=== PATIENT | female | born 1945 | race Caucasian/White ===

== ENCOUNTER 2017-07-07 07:10 | Day surgery (SDC) | payer MEDICARE, BC ==
[2017-07-07] MEDS ORDERED: Lactated Ringers 1,000 ML IV SCH (07:15)
[2017-07-07] MEDS ORDERED: Sodium Chloride 0.9% 10 ML Syringe FLUSH PRN (07:15)
[2017-07-07] MEDS ORDERED: Propofol 200 MG/20 ML SDV IV ONE (08:47)
[2017-07-07] MEDS ORDERED: Lidocaine 2% 100 MG/5 ML Syringe IVPUSH ONE (08:47)
--- NOTE | 2017-07-07 08:53 | PCM.HP ---
H&P History of Present Illness - General Date of Service: 07/07/17 Admit Problem/Dx: Admission Diagnosis/Problem Admission Diagnosis/Problem Colonoscopy Source of Information: Patient History Limitations: Reports: No Limitations - History of Present Illness Initial Comments - Free Text/Narative: Here for colonoscopy for history of polyps - Related Data Allergies/Adverse Reactions: Allergies Allergy/AdvReac Type Severity Reaction Status Date / Time metformin AdvReac Mild GI Verified 07/04/17 09:48 INTOLERANCE Penicillins AdvReac Mild Headache Verified 07/04/17 09:48 Jyiaidc-Mtn-Lfl Reductase AdvReac Mild MUSCLE PAIN Verified 07/04/17 09:48 Inhibitor Home Medications: Home Meds Albuterol [IMW: Albuterol HFA] 2 puff IH Q4HR PRN 07/04/17 [History] Aspirin [Ecotrin] 325 mg PO DAILY 07/04/17 [History] Carboxymethyl/Glycerin/Poly80 [Refresh Optive Advanced Drops] 1 drop OP BID 06/10 [History] Fluticasone/Salmeterol [Advair Diskus 100-50] 1 puff INH BID 07/04/17 [History] Furosemide [Lasix] 20 mg PO DAILY 07/04/17 [History] Hydrochlorothiazide 25 mg PO DAILY 07/04/17 [History] Insulin Aspart [Novolog] 3 - 4 unit SQ ACLUNCH 07/04/17 [History] Insulin Aspart [Novolog] 10 unit SQ ACDINNER 07/04/17 [History] Insulin Detemir [Levemir Flextouch] 48 unit SQ ACBREAKFAST 07/04/17 [History] Metoprolol Tartrate [Lopressor] 25 mg PO Q12HR 07/04/17 [History] Past Medical History HEENT History: Reports: Cataract Cardiovascular History: Reports: Arrhythmia, High Cholesterol, Hypertension Other Cardiovascular History: TACHYCARDIA YEARS AGO. 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 OB/BYN History: III PARA III Musculoskeletal History: Reports: None Neurological History: Reports: None Psychiatric History: Reports: Depression Endocrine/Metabolic History: Reports: Diabetes, Type II, Obesity/BMI 30+ Hematologic History: Reports: None Immunologic History: Reports: None Dermatologic History: Reports: Psoriasis - Infectious Disease History Infectious Disease History: Reports: Chicken Pox, Measles, Mumps, Rubella - Past Surgical History HEENT Surgical History: Reports: Cataract Surgery GI Surgical History: Reports: Hernia Repair/Other, Other (See Below) Other GI Surgeries/Procedures: HEMORRHOIDECTOMY 1987 , INCISIONAL HERNIORRAHPPY 1998 Female Surgical History: Reports: Breast Biopsy, Hysterectomy, Salpingo- Oophorectomy Other Female Surgeries/Procedures: LEFT BREAST BX , CAMACHO URETHROPEXY. Musculoskeletal Surgical History: Reports: Carpal Tunnel Other Musculoskeletal Surgeries/Procedures:: RIGHT CARPAL TUNNEL RELEASE Social & Family History - Family History GI: Reports: Other (See Below) Other GI Family History: STATES DAD HAD COLON CANCER - Tobacco Use Smoking Status *Q: Never Smoker - Caffeine Use Caffeine Use: Reports: Soda - Alcohol Use Days Per Week of Alcohol Use: 0 - Recreational Drug Use Recreational Drug Use: No H&P Review of Systems - Review of Systems: Review Of Systems: See Below General: Reports: No Symptoms Pulmonary: Reports: No Symptoms Cardiovascular: Reports: No Symptoms Gastrointestinal: Reports: No Symptoms Exam - Exam Exam: See Below - Vital Signs Vital Signs: Last Vital Signs Temp 97.5 F 07/07/17 07:56 Pulse 66 07/07/17 07:56 Resp 20 07/07/17 07:56 BP 147/78 H 07/07/17 07:56 Pulse Ox 99 07/07/17 07:56 Weight: 96.615 kg - Exam General: Alert, Oriented Lungs: Clear to Auscultation, Normal Respiratory Effort Cardiovascular: Regular Rate, Regular Rhythm GI/Abdominal Exam: Soft, Non-Tender - Patient Data Lab Results Last 24 hrs: Laboratory Results - last 24 hr 07/07/17 Range/Units 08:08 POC Glucose 83 (80-116) mg/dL *Q Meaningful Use (ADM) - VTE *Q VTE Criteria *Q: - Stroke *Q Stroke Criteria *Q: - AMI *Q AMI Criteria *Q: Problem List Initiated/Reviewed/Updated: Yes Orders Last 24hrs: Active Orders 24 hr Category Date Time Status Patient Status [ADT] Routine ADT 07/07/17 07:15 Ordered Blood Glucose Check, Bedside [RC] ONETIME Care 07/07/17 07:15 Active Verify Patient Consent Obtain [RC] ASDIRECTED Care 07/07/17 07:15 Active Lactated Ringers [Ringers, Lactated] 1,000 ml Med 07/07/17 07:15 Active IV ASDIRECTED Sodium Chloride 0.9% [Saline Flush] Med 07/07/17 07:15 Active 10 ml FLUSH ASDIRECTED PRN Peripheral IV Insertion Adult [OM.PC] Routine Oth 07/07/17 07:15 Ordered Medication Orders Lactated Ringer's (Ringers, Lactated) 1,000 mls @ 125 mls/hr IV ASDIRECTED EPIFANIO Sodium Chloride (Saline Flush) 10 ml FLUSH ASDIRECTED PRN PRN Reason: Keep Vein Open Assessment/Plan Comment:: Hx Colon Polyps Ok to proceed with colonoscopy
--- NOTE | 2017-07-07 09:23 | PCM.OPNOTE ---
- General Post-Op/Procedure Note Date of Surgery/Procedure: 07/07/17 Operative Procedure(s): Colonoscopy Findings: Normal Pre Op Diagnosis: Hx Colon Polyps Post-Op Diagnosis: Same Anesthesia Technique: MAC Primary Surgeon: Albert Duncan Anesthesia Provider: Claire DOWNING in mLs: 0 Complications: None Condition: Good
--- NOTE | 2017-07-07 15:33 | OR ---
DATE OF OPERATION: 07/07/2017 SURGEON: Albert Duncan MD PREOPERATIVE DIAGNOSIS: History of colon polyps. POSTOPERATIVE DIAGNOSIS: Normal colonoscopy. PROCEDURE PERFORMED: Colonoscopy. ANESTHESIA: IV sedation. DESCRIPTION OF PROCEDURE: The patient was brought to the procedure room, where she was placed on her left side and IV sedation administered. Digital rectal exam was performed, which was normal. The colonoscope was inserted and advanced to the level of the cecum without difficulty. Cecal position was confirmed by identifying the appendiceal lumen and ileocecal valve. Terminal ileum was intubated for a short distance. Upon withdrawing the scope, her prep was good and surfaces were well visualized. Upon withdrawing the scope, the ascending, transverse, and descending colon were normal in appearance. The sigmoid colon and rectum were normal. Retroflexion was normal. Air was removed, and the scope withdrawn. The patient tolerated the procedure well and returned to Recovery in a stable condition. Recommend routine colon surveillance again in 5 years. /[id number] CALLUM/ABIGAIL CC: TOD DE LA CRUZ CNP
== END 2017-07-07 10:37 | disposition home or self-care (01) ==
LOC: FB.SDS 07:10
PROVIDERS: ATTEND Surgery
DX: Z12.11 Encounter for screening for malignant neoplasm of colon (principal); I10 Essential (primary) hypertension; E11.65 Type 2 diabetes mellitus with hyperglycemia; G47.30 Sleep apnea, unspecified; E78.5 Hyperlipidemia, unspecified; F32.5 Major depressive disorder, single episode, in full remission; J45.20 Mild intermittent asthma, uncomplicated; Z86.010 Personal history of colon polyps; Z88.0 Allergy status to penicillin; Z88.8 Allergy status to other drugs, medicaments and biological substances; Z79.899 Other long term (current) drug therapy; Z79.4 Long term (current) use of insulin; Z79.82 Long term (current) use of aspirin; Z68.41 Body mass index [BMI] 40.0-44.9, adult
CPT/HCPCS: 00810; 82962; G0105; J2704; J7120

== ENCOUNTER 2017-08-07 14:45 | Emergency (ER) | payer MEDICARE, BC ==
[2017-08-07] MEDS ORDERED: Ketorolac 30 MG/ML SDV IVPUSH ONE (15:31)
--- NOTE | 2017-08-07 15:47 | EDM.PDOC ---
ED HPI GENERAL MEDICAL PROBLEM - General Stated Complaint: BACK MUSCLE SPASMS Time Seen by Provider: 08/07/17 14:55 Source of Information: Reports: Patient History Limitations: Reports: No Limitations - History of Present Illness INITIAL COMMENTS - FREE TEXT/NARRATIVE: c/o R low back pain x 12h pt with onset of pain at R iliac crest laterally that radiates to midline, inc' d when she walks, went to chiropractor this AM but that made it worse, went to clinic but not able to get an appointment, however they did a u/a which showed 3 -8 wbc, 10-20 rbc, moderate epi's, few bacteria. Dx made of UTI and Macrobid Rx' ed. 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 Pt does not normally take pain meds. Took Aleve x 2 this AM without benefit. No true radiation, does have pain at R iliac crest to R lower lumbar spine, denies abd pain, no pain down legs, has felt fatigued. No f/c/d. back right Pain Score (Numeric/FACES): 6 - Related Data Allergies Allergy/AdvReac Type Severity Reaction Status Date / Time metformin AdvReac Mild GI Verified 08/07/17 15:06 INTOLERANCE Penicillins AdvReac Mild Headache Verified 08/07/17 15:06 Mebvksk-Jnm-Mka Reductase AdvReac Mild MUSCLE PAIN Verified 08/07/17 15:06 Inhibitor Home Meds: Home Meds Albuterol [IMW: Albuterol HFA] 2 puff IH Q4HR PRN 07/04/17 [History] Aspirin [Ecotrin] 325 mg PO DAILY 07/04/17 [History] Carboxymethyl/Glycerin/Poly80 [Refresh Optive Advanced Drops] 1 drop OP BID 06/10 [History] Fluticasone/Salmeterol [Advair Diskus 100-50] 1 puff INH BID 07/04/17 [History] Furosemide [Lasix] 20 mg PO DAILY 07/04/17 [History] Hydrochlorothiazide 25 mg PO DAILY 07/04/17 [History] Insulin Aspart [Novolog Flexpen] 3 - 4 unit SQ ACLUNCH 07/04/17 [History] Insulin Aspart [Novolog Flexpen] 10 unit SQ ACDINNER 07/04/17 [History] Insulin Detemir [Levemir Flextouch] 48 unit SQ ACBREAKFAST 07/04/17 [History] Metoprolol Tartrate [Lopressor] 25 mg PO Q12HR 07/04/17 [History] Past Medical History HEENT History: Reports: Cataract Cardiovascular History: Reports: Arrhythmia, High Cholesterol, Hypertension Other Cardiovascular History: TACHYCARDIA YEARS AGO. 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 OB/BYN History: III PARA III Musculoskeletal History: Reports: None Neurological History: Reports: None Psychiatric History: Reports: Depression Endocrine/Metabolic History: Reports: Diabetes, Type II, Obesity/BMI 30+ Hematologic History: Reports: None Immunologic History: Reports: None Dermatologic History: Reports: Psoriasis - Infectious Disease History Infectious Disease History: Reports: Chicken Pox, Measles, Mumps, Rubella - Past Surgical History HEENT Surgical History: Reports: Cataract Surgery GI Surgical History: Reports: Hernia Repair/Other, Other (See Below) Other GI Surgeries/Procedures: HEMORRHOIDECTOMY 1987 , INCISIONAL HERNIORRAHPPY 1998 Female Surgical History: Reports: Breast Biopsy, Hysterectomy, Salpingo- Oophorectomy Other Female Surgeries/Procedures: LEFT BREAST BX , CAMACHO URETHROPEXY. Musculoskeletal Surgical History: Reports: Carpal Tunnel Other Musculoskeletal Surgeries/Procedures:: RIGHT CARPAL TUNNEL RELEASE Social & Family History - Family History GI: Reports: Other (See Below) Other GI Family History: STATES DAD HAD COLON CANCER - Tobacco Use Smoking Status *Q: Never Smoker - Caffeine Use Caffeine Use: Reports: Soda - Alcohol Use Days Per Week of Alcohol Use: 0 - Recreational Drug Use Recreational Drug Use: No ED ROS GENERAL - Review of Systems Review Of Systems: See Below Constitutional: Reports: No Symptoms HEENT: Reports: No Symptoms Respiratory: Reports: No Symptoms Cardiovascular: Reports: No Symptoms Endocrine: Reports: No Symptoms GI/Abdominal: Reports: No Symptoms : Reports: No Symptoms Musculoskeletal: Reports: Back Pain Skin: Reports: No Symptoms Neurological: Reports: No Symptoms Psychiatric: Reports: No Symptoms Hematologic/Lymphatic: Reports: No Symptoms Immunologic: Reports: No Symptoms ED EXAM, GI/ABD - Physical Exam Exam: See Below Exam Limited By: No Limitations General Appearance: Alert, WD/WN, No Apparent Distress Head: Atraumatic, Normocephalic Neck: Normal Inspection, Supple, Non-Tender, Full Range of Motion Respiratory/Chest: No Respiratory Distress, Lungs Clear, Normal Breath Sounds, No Accessory Muscle Use, Chest Non-Tender Cardiovascular: Regular Rate, Rhythm, No Edema, No Gallop, No Murmur, No Rub GI/Abdominal Exam: Normal Bowel Sounds, Soft, Non-Tender, No Distention, Other ( obese) Back Exam: Normal Inspection, Full Range of Motion, Other (no spasm, no PT at iliac crests or SI joints or l-spine, sitting erect and rather stiffly on the edge of the bed). No: Muscle Spasm Extremities: Normal Inspection, Normal Range of Motion, Non-Tender, No Pedal Edema Neurological: Alert, Oriented, CN II-XII Intact, Normal Cognition, Normal Reflexes, No Motor/Sensory Deficits, Other (DTRs 1+ at patella b/l, great toe extension 5/5 b/l, foot sensation intact) Psychiatric: Normal Affect, Normal Mood Skin Exam: Warm, Dry, Intact, Normal Color, No Rash Lymphatic: No Adenopathy Course - Vital Signs Last Recorded V/S: Last Vital Signs Temp 36.6 C 08/07/17 14:45 Pulse 67 08/07/17 14:45 Resp 24 H 08/07/17 14:45 BP 146/48 H 08/07/17 14:45 Pulse Ox 100 08/07/17 14:45 - Orders/Labs/Meds Orders: Active Orders 24 hr Category Date Time Status Abdomen Pelvis wo Cont [CT] Stat Exams 08/07/17 15:30 Taken Labs: Laboratory Tests 08/07/17 08/07/17 08/07/17 Range/Units 15:55 15:55 15:55 WBC 8.0 (4.5-12.0) X10-3/uL RBC 4.28 (3.23-5.20) x10(6)uL Hgb 13.0 (11.5-15.5) g/dL Hct 38.3 (30.0-51.3) % MCV 89.4 (80-96) fL MCH 30.3 (27.7-33.6) pg MCHC 33.9 (32.2-35.4) g/dL RDW 12.8 (11.5-15.5) % Plt Count 327 (125-369) X10(3)uL MPV 6.4 L (7.4-10.4) fL Neut % (Auto) 65.6 (46-82) % Lymph % (Auto) 26.3 (13-37) % [place] % (Auto) 5.3 (4-12) % Eos % (Auto) 2 (1.0-5.0) % Baso % (Auto) 1 (0-2) % Neut # (Auto) 5.3 (1.6-8.3) # Lymph # (Auto) 2.1 (0.6-5.0) # [place] # (Auto) 0.4 (0.0-1.3) # Eos # (Auto) 0.2 (0.0-0.8) # Baso # (Auto) 0.0 (0.0-0.2) # Sodium 142 (135-145) mmol/L Potassium 3.8 (3.5-5.3) mmol/L Chloride 105 (100-110) mmol/L Carbon Dioxide 28 (21-32) mmol/L BUN 17 (7-18) mg/dL Creatinine 0.8 (0.55-1.02) mg/dL Est Cr Clr Drug Dosing 44.99 mL/min Estimated GFR (MDRD) > 60 (>60) BUN/Creatinine Ratio 21.3 H (9-20) Glucose 161 H (80-116) mg/dL Calcium 9.1 (8.6-10.2) mg/dL Total Bilirubin 0.5 (0.1-1.3) mg/dL AST 19 (5-25) IU/L ALT 16 (12-36) U/L Alkaline Phosphatase 72 (56-112) IU/L C-Reactive Protein 0.7 (0.5-0.9) mg/dL Total Protein 7.7 (6.0-8.0) g/dL Albumin 3.7 (3.2-4.6) g/dL Globulin 4.0 g/dL Albumin/Globulin Ratio 0.9 Meds: Medications Discontinued Medications Generic Name Dose Route Start Last Admin Trade Name Freq PRN Reason Stop Dose Admin Ketorolac Tromethamine 30 mg 08/07/17 15:31 Toradol IVPUSH 08/07/17 15:32 ONETIME ONE - Re-Assessments/Exams Free Text/Narrative Re-Assessment/Exam: 08/07/17 17:34 feeling much better, still having some pain but not what it was, walking without difficulty, CT shows a 7 mm calcification in the bladder that is likely the stone that was seen in the R renal pelvis 12/09 that is no longer there Departure - Departure Time of Disposition: 17:37 Disposition: Home, Self-Care 01 Condition: Good Clinical Impression: Renal colic on right side - Discharge Information Referrals: Basia Bermudez, CLINICAL CODER [Primary Care Provider] - Additional Instructions: Take Aleve 2 tabs this evening and another 2 tabs in the morning. As needed, take tramadol 50 mg 1 tab every 6 hours for pain. No alcohol. Screen your urine. See your physician in 4 days. Return to ED if you are feeling worse. Call your Physician or Return to Emergency Department if: * Your condition worsens in any way. * You develop fever greater than 100.4. * You have vomitting that does not stop with medications. * You have pain that is not controlled with medications. - My Orders Last 24 Hours: My Active Orders 08/07/17 15:30 Abdomen Pelvis wo Cont [CT] Stat - Assessment/Plan Last 24 Hours: My Active Orders 08/07/17 15:30 Abdomen Pelvis wo Cont [CT] Stat
[2017-08-07] MEDS ORDERED: traMADol 50 MG Tab PO ONE (17:40)
== END 2017-08-07 17:52 | disposition home or self-care (01) ==
LOC: FB.ED 14:45
DX: N23 Unspecified renal colic (principal); J45.909 Unspecified asthma, uncomplicated; E11.9 Type 2 diabetes mellitus without complications; E66.9 Obesity, unspecified; Z79.82 Long term (current) use of aspirin; Z79.4 Long term (current) use of insulin; Z88.0 Allergy status to penicillin; Z88.8 Allergy status to other drugs, medicaments and biological substances
CPT/HCPCS: 36415; 74176; 80053; 85025; 86140; 96374; 99284; J1885; A9270-GY

== ENCOUNTER 2019-04-07 08:17 | Emergency (ER) | payer MEDICARE, BC ==
--- NOTE | 2019-04-07 08:48 | EDM.PDOC ---
ED HPI GENERAL MEDICAL PROBLEM - General Chief Complaint: Lower Extremity Injury/Pain Stated Complaint: FELL OVER DOG AND INJURED LEG Time Seen by Provider: 04/07/19 08:40 Source of Information: Reports: Patient History Limitations: Reports: No Limitations - History of Present Illness INITIAL COMMENTS - FREE TEXT/NARRATIVE: was up to use the bathroom in the middle of the night last night and didn't turn the light on. Tripped over her black dog on the black floor. She landed hard on her right knee, and was unable to walk on it after that. She crawled back to bed as her wasn't able to hear her yelling. This morning she has been able to get around using a stool in front of her that she puts her weight on with her hands and then shifts her knee forward. Has had trouble with that knee in the past, thinks it's probably got bad arthritis. Sometimes takes ibuprofen but not often. certain that she did not hit her head, and she has no other injuries. No back, arm or wrist pain, no difficulty moving her foot, no pain in her hip, no left leg pain. No numbness, weakness or tingling. History of diabetes. right knee Pain Score (Numeric/FACES): 8 - Related Data Allergies Allergy/AdvReac Type Severity Reaction Status Date / Time metformin AdvReac Mild GI Verified 04/07/19 08:34 INTOLERANCE Penicillins AdvReac Mild Headache Verified 04/07/19 08:34 Vhzygas-Uud-Xql Reductase AdvReac Mild MUSCLE PAIN Verified 04/07/19 08:34 Inhibitor Home Meds: Home Meds RX: Albuterol [IMW: Albuterol HFA] 2 puff IH Q4HR PRN 07/04/17 [History] RX: Carboxymethyl/Glycerin/Poly80 [Refresh Optive Advanced Drops] 1 drop OP BID 07/04/17 [History] RX: Fluticasone/Salmeterol [Advair Diskus 100-50] 1 puff INH BID 07/04/17 [ History] RX: Furosemide [Lasix] 20 mg PO DAILY 07/04/17 [History] RX: Hydrochlorothiazide 25 mg PO DAILY 07/04/17 [History] RX: Insulin Aspart [Novolog Flexpen] 3 - 4 unit SQ ACLUNCH 07/04/17 [History] RX: Insulin Aspart [Novolog Flexpen] 10 unit SQ ACDINNER 07/04/17 [History] RX: Insulin Detemir [Levemir Flextouch] 48 unit SQ ACBREAKFAST 07/04/17 [History ] RX: Metoprolol Tartrate [Lopressor] 25 mg PO Q12HR 07/04/17 [History] RX: Walker [Ultra-Light Rollator] 1 each MC DAILY #1 each 04/07/19 [Rx] amLODIPine [Norvasc] 5 mg PO DAILY 04/07/19 [History] Past Medical History HEENT History: Reports: Cataract Cardiovascular History: Reports: Arrhythmia, High Cholesterol, Hypertension Other Cardiovascular History: TACHYCARDIA YEARS AGO. 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: III PARA III Musculoskeletal History: Reports: None Neurological History: Reports: None Psychiatric History: Reports: Depression Endocrine/Metabolic History: Reports: Diabetes, Type II, Obesity/BMI 30+ Hematologic History: Reports: None Immunologic History: Reports: None Dermatologic History: Reports: Psoriasis - Infectious Disease History Infectious Disease History: Reports: Chicken Pox, Measles, Mumps, Rubella - Past Surgical History HEENT Surgical History: Reports: Cataract Surgery GI Surgical History: Reports: Hernia Repair/Other, Other (See Below) Other GI Surgeries/Procedures: HEMORRHOIDECTOMY 1987 , INCISIONAL HERNIORRAHPPY 1998 Female Surgical History: Reports: Breast Biopsy, Hysterectomy, Salpingo- Oophorectomy Other Female Surgeries/Procedures: LEFT BREAST BX , CAMACHO URETHROPEXY. Musculoskeletal Surgical History: Reports: Carpal Tunnel Other Musculoskeletal Surgeries/Procedures:: RIGHT CARPAL TUNNEL RELEASE Social & Family History - Family History Family Medical History: Noncontributory GI: Reports: Other (See Below) Other GI Family History: STATES DAD HAD COLON CANCER - Tobacco Use Smoking Status *Q: Never Smoker - Caffeine Use Caffeine Use: Reports: Soda - Living Situation & Occupation Living situation: Reports: Social History Comment: lives at home, very active taking care of 3 dogs and some cats Review of Systems - Review of Systems Review Of Systems: ROS reveals no pertinent complaints other than HPI. ED EXAM, GENERAL - Physical Exam Exam: See Below Free Text/Narrative:: general: Alert, pleasant in no acute distress. Heart is regular, lungs are clear. There is a slight abrasion noted to the anterior right knee. She is able to flex and extend, but cannot reach full extension due to pain. No significant knee effusion is noted. She does not have any laxity with anterior and posterior drawer testing, although exam is limited due to pain. No laxity or tenderness of the medial or collateral ligaments. Distal circulation/sensation/ motor is intact in the rest of the leg and foot. She does not have any pain with internal and external hip rotation while seated. Course - Vital Signs Text/Narrative:: mechanical fall, isolated knee injury. Will obtain x-rays Last Recorded V/S: Last Vital Signs Temp 36.7 C 04/07/19 08:25 Pulse 56 L 04/07/19 08:25 Resp 18 04/07/19 08:25 BP 143/64 H 04/07/19 08:25 Pulse Ox 100 04/07/19 08:25 - Re-Assessments/Exams Free Text/Narrative Re-Assessment/Exam: 04/07/19 review of x-ray shows significant osteoarthritis, I do not see a fracture. Official report also does not know any obvious fractures. She does not have a significant joint effusion, however at this point could not rule out some kind of meniscal injury. Recommended Ever wrap versus knee brace and one was provided today to use for comfort and to help with mobility. Prescription also given for walker. Follow-up with PCP if pain is not improved after next 3- 4 days, can take ibuprofen and/or Tylenol for pain, also recommended ice. She was in agreement with this plan and had no further questions Departure - Departure Time of Disposition: 11:08 Disposition: Home, Self-Care 01 Condition: Good Clinical Impression: Knee strain - Discharge Information *PRESCRIPTION DRUG MONITORING PROGRAM REVIEWED*: Not Applicable *COPY OF PRESCRIPTION DRUG MONITORING REPORT IN PATIENT BROOK: Not Applicable Prescriptions: RX: Walker [Ultra-Light Rollator] 1 each MC DAILY #1 each Instructions: Knee Sprain, Adult, [id number], How to Use a Knee Immobilizer, [id number] Referrals: Eloisa Boland TANK CREWMEMBER [Primary Care Provider] - Forms: ED Department Discharge Additional Instructions: recommend rest/very careful at home next few days inflammation from an injury peaks in 48-72 hours. After this process is done you should feel better, although you may still have some pain. Followup with PCP early next week if still having difficulty or not able to move knee properly. prescription given for walker to help with mobility may take ibuprofen 400mg every 6 hours. If needed you can take 1 extra pill at night (for total 600mg dose) to help with sleep be sure to drink lots of water with this ice, compression wrap, and elevation/leg propped up will be most helpful brace as needed for comfort and to help move around. Can put a small rolled towel behind knee if needed
--- NOTE | 2019-04-07 10:55 | CR ---
INDICATION: Fall, knee pain. RIGHT KNEE: Three views of the right knee were obtained 04/07/19 - no comparisons. Moderately severe to severe degenerative osteoarthritic changes are noted at the medial femorotibial joint space with narrowing, hypertrophic lipping, and spurring. Hypertrophic changes are also noted at the intercondylar notch and medial intercondylar spine. Hypertrophic degenerative changes are also noted at the patellofemoral joint with some narrowing of the lateral patellofemoral joint space. Overall bone density appeared to be normal. A definite fracture or dislocation was not identified. IMPRESSION: 1. No acute fracture or dislocation. 2. Moderately severe to severe osteoarthritis with joint space loss. MTDD
== END 2019-04-07 11:40 | disposition home or self-care (01) ==
LOC: FB.ED 08:17
DX: S86.811A Strain of other muscle(s) and tendon(s) at lower leg level, right leg, initial encounter (principal); I10 Essential (primary) hypertension; E11.9 Type 2 diabetes mellitus without complications; E66.9 Obesity, unspecified; Z79.4 Long term (current) use of insulin; Z88.0 Allergy status to penicillin; Z68.30 Body mass index [BMI] 30.0-30.9, adult; Z88.8 Allergy status to other drugs, medicaments and biological substances
CPT/HCPCS: 73562-RT; 99283; 99283-25

== ENCOUNTER 2023-06-11 11:57 | Emergency (ER) | payer MEDICARE, BC ==
[2023-06-11 12:28] LABS: BASOPHILS ABSOLUTE AUTO 0.1 x10-3/uL (0.0-0.1); BASOPHILS PERCENT AUTO 1.2 % (0.2-1.5); EOSINOPHILS ABSOLUTE AUTO 0.1 x10-3/uL (0.0-0.8); EOSINOPHILS PERCENT AUTO 1.9 % (0.6-8.1); HEMOGLOBIN 12.9 g/dL (11.4-15.5); LYMPHOCYTES ABSOLUTE AUTO 1.6 x10-3/uL (1.0-4.4); LYMPHOCYTES PERCENT AUTO 27.6 % (18.4-52.1); MEAN CORPUSCULAR HEMOGLOBIN 30.3 pg (23.9-33.9); MEAN CORPUSCULAR HGB CONC 33.9 g/dL (31.9-34.8); MEAN CORPUSCULAR VOLUME 89.2 fL (76.7-100.5); MEAN PLATELET VOLUME 6.2 fL (7.1-12.4); MONOCYTES ABSOLUTE AUTO 0.5 x10-3/uL (0.3-1.0); MONOCYTES PERCENT AUTO 8.6 % (4.4-15.7); NEUTROPHILS ABSOLUTE AUTO 3.5 x10-3/uL (1.5-6.3); NEUTROPHILS PERCENT AUTO 60.7 % (30.8-76.2); PLATELET COUNT,PLT 269 x10(3)uL (151-488); RED BLOOD CELL COUNT 4.26 x10(6)uL (3.60-5.20); WHITE BLOOD CELL COUNT,WBC 5.8 x10-3/uL (3.0-10.3)
[2023-06-11 12:37] LABS: A/G RATIO 0.9; ALANINE AMINOTRANSFERASE,ALT 18 U/L (12-36); ALBUMIN 3.2 g/dL (3.2-4.6); ALKALINE PHOSPHATASE 69 IU/L (56-112); ASPARTATE AMNIOTRANSFERASE,AST 12 IU/L (5-25); BILIRUBIN TOTAL 0.5 mg/dL (0.1-1.3); BLOOD UREA NITROGEN,BUN 9 mg/dL (7-18); BUN/CREATININE RATIO 12.9 (9-20); CALCIUM 8.8 mg/dL (8.6-10.2); CARBON DIOXIDE,CO2 31 mmol/L (21-32); CHLORIDE,CL 105 mmol/L (100-110); CREATININE 0.7 mg/dL (0.55-1.02); EST CRCL DRUG DOSING (CG) 49.18 mL/min; ESTIMATED GFR 88 mL/min (>60); GLUCOSE RANDOM 125 mg/dL (80-116); POTASSIUM,K 3.2 mmol/L (3.5-5.3); PROTEIN TOTAL,TP 6.9 g/dL (6.0-8.0); SODIUM,NA 144 mmol/L (135-145)
[2023-06-11 12:39] LABS: INR 1.01 (1.00-1.24); PROTHROMBIN TIME 10.4 sec (9.0-11.1)
[2023-06-11 12:43] LABS: PTT,PARTIAL THROMBOPLSTIN TIME 25.1 SECONDS (24.4-33.2)
[2023-06-11] MEDS ORDERED: Hydrochlorothiazide 25 MG Tab PO ONE (12:47)
[2023-06-11] MEDS ORDERED: Potassium Chloride 20 MEQ Tab.ER PO ONE (12:47)
[2023-06-11] MEDS ORDERED: amLODIPine 5 MG Tab PO ONE (12:47)
[2023-06-11] MEDS ORDERED: Iopamidol 755 Mg/ML 100 ML Bottle IV ONE (13:07)
[2023-06-11 13:50] LABS: BILIRUBIN,URINE NEGATIVE (NEGATIVE); GLUCOSE,URINE >1000 mg/dL (NORMAL); KETONES,URINE NEGATIVE (NEGATIVE); LEUKOCYTE ESTERASE,URINE NEGATIVE (NEGATIVE); NITRITE,URINE NEGATIVE (NEGATIVE); OCCULT BLOOD,URINE NEGATIVE (NEGATIVE); PH,URINE 6.5 (5.0-6.5); PROTEIN,URINE NEGATIVE (NEGATIVE); UROBILINOGEN,URINE NORMAL (NEGATIVE)
[2023-06-11 13:51] LABS: APPEARANCE,URINE CLEAR (CLEAR); BACTERIA,URINE FEW (NS); COLOR,URINE YELLOW (YELLOW); SQUAMOUS EPITHELIAL CELLS,UR FEW (NS,R,O); WBC,URINE 0-5 (0-5)
[2023-06-11] MEDS ORDERED: Zolpidem 5 MG Tab PO PRN (15:02)
[2023-06-11] MEDS ORDERED: Acetaminophen 325 MG Tab PO PRN (15:02)
[2023-06-11] MEDS ORDERED: Sodium Chloride 0.9% 10 ML Syringe FLUSH PRN (15:02)
[2023-06-11] MEDS ORDERED: Ondansetron 4 MG/2 ML SDV IV PRN (15:02)
[2023-06-11] MEDS ORDERED: Enoxaparin 40 MG/0.4 ML Syringe SUBCUT SCH (15:15)
[2023-06-11] MEDS ORDERED: cloNIDine 0.1 MG Tab PO PRN (15:18)
[2023-06-11] MEDS: Insulin Lispro 100 Unit/ML 3 ML KwikPen SUBCUT SCH (17:25)
[2023-06-11] MEDS ORDERED: Insulin Glargine,Human Rec. Analog 100 Units/ML 3 ML Pen SUBCUT ONE (20:36)
[2023-06-11] MEDS: Carboxymethylcellulose Sodium 0.5% Ophth Soln 15 ML Bottle EYEBOTH SCH (20:39)
[2023-06-11] MEDS ORDERED: DIS INH SCH (21:00)
[2023-06-11] MEDS ORDERED: SALMETEROL INH SCH (21:00)
[2023-06-11] MEDS ORDERED: FLUTICASONE INH SCH (21:00)
[2023-06-11] MEDS ORDERED: Insulin Glargine,Human Rec. Analog 100 Units/ML 3 ML Pen SUBCUT SCH (21:00)
[2023-06-11] MEDS ORDERED: [UNRECOGNIZED DRUG - OTHER] INH SCH (21:00)
[2023-06-11] MEDS ORDERED: Carboxymethylcellulose Sodium 0.5% Ophth Soln 15 ML Bottle EYEBOTH SCH (21:00)
[2023-06-12 06:40] LABS: BASOPHILS ABSOLUTE AUTO 0.1 x10-3/uL (0.0-0.1); BASOPHILS PERCENT AUTO 1.5 % (0.2-1.5); EOSINOPHILS ABSOLUTE AUTO 0.1 x10-3/uL (0.0-0.8); HEMATOCRIT 37.2 % (34.2-48.2); HEMOGLOBIN 12.8 g/dL (11.4-15.5); LYMPHOCYTES ABSOLUTE AUTO 1.6 x10-3/uL (1.0-4.4); LYMPHOCYTES PERCENT AUTO 26.9 % (18.4-52.1); MEAN CORPUSCULAR HEMOGLOBIN 30.3 pg (23.9-33.9); MEAN CORPUSCULAR HGB CONC 34.4 g/dL (31.9-34.8); MEAN CORPUSCULAR VOLUME 88.1 fL (76.7-100.5); MONOCYTES ABSOLUTE AUTO 0.6 x10-3/uL (0.3-1.0); MONOCYTES PERCENT AUTO 9.5 % (4.4-15.7); NEUTROPHILS ABSOLUTE AUTO 3.6 x10-3/uL (1.5-6.3); NEUTROPHILS PERCENT AUTO 60.1 % (30.8-76.2); PLATELET COUNT,PLT 267 x10(3)uL (151-488); RED BLOOD CELL COUNT 4.23 x10(6)uL (3.60-5.20); RED CELL DISTRIBUTION WIDTH 13.8 % (12.3-16.5)
[2023-06-12 06:50] LABS: BLOOD UREA NITROGEN,BUN 8 mg/dL (7-18); BUN/CREATININE RATIO 13.3 (9-20); CALCIUM 9.2 mg/dL (8.6-10.2); CARBON DIOXIDE,CO2 32 mmol/L (21-32); CHLORIDE,CL 104 mmol/L (100-110); CREATININE 0.6 mg/dL (0.55-1.02); EST CRCL DRUG DOSING (CG) 60.13 mL/min; ESTIMATED GFR 91 mL/min (>60); GLUCOSE RANDOM 94 mg/dL (80-116); SODIUM,NA 142 mmol/L (135-145)
[2023-06-12 06:53] LABS: POTASSIUM,K 2.8 mmol/L (3.5-5.3)
[2023-06-12] MEDS ORDERED: Potassium Chloride 20 MEQ Tab.ER PO ONE (08:58)
[2023-06-12] MEDS ORDERED: Empagliflozin 25 MG Tab PO SCH (09:00)
[2023-06-12] MEDS ORDERED: Metoprolol Succinate 50 MG Tab.ER PO SCH (09:00)
[2023-06-12] MEDS ORDERED: amLODIPine 5 MG Tab PO SCH (09:00)
[2023-06-12] MEDS ORDERED: WALKER MC SCH (09:00)
[2023-06-12] MEDS ORDERED: Hydrochlorothiazide 25 MG Tab PO SCH (09:00)
[2023-06-12] MEDS ORDERED: Furosemide 20 MG Tab PO SCH (09:00)
[2023-06-12] MEDS: Insulin Lispro 100 Unit/ML 3 ML KwikPen SUBCUT SCH (09:31)
[2023-06-12] MEDS: Carboxymethylcellulose Sodium 0.5% Ophth Soln 15 ML Bottle EYEBOTH SCH (09:32)
[2023-06-12] MEDS ORDERED: Non-Formulary Medication 1 Each (Insulin Aspart [Novolog Flexpen] 100 UNIT/ML Ml) SQ SCH (11:30)
== END 2023-06-12 11:20 | disposition home or self-care (01) ==
LOC: FB.ED 11:57 → FB.MS 14:34
PROVIDERS: ADMIT Emergency Medicine; ATTEND Family Medicine
DX: G45.9 Transient cerebral ischemic attack, unspecified (principal); I10 Essential (primary) hypertension; E87.6 Hypokalemia; E11.9 Type 2 diabetes mellitus without complications; E78.00 Pure hypercholesterolemia, unspecified; K21.9 Gastro-esophageal reflux disease without esophagitis; E66.9 Obesity, unspecified; J44.9 Chronic obstructive pulmonary disease, unspecified; Z79.4 Long term (current) use of insulin; Z79.899 Other long term (current) drug therapy; Z88.0 Allergy status to penicillin; Z88.8 Allergy status to other drugs, medicaments and biological substances; Z68.41 Body mass index [BMI] 40.0-44.9, adult
CPT/HCPCS: 36415; 70496; 70498; 70551; 71045; 80048; 80053; 81001; 82947; 83605; 84484; 85025; 85610; 85730; 86140; 87040; 93005; 93010; 96372; 99222; 99285; A9270-GY; G0378; J1650; J1815; J1815-GY; Q9967; U0002